=== PATIENT | female | born 1980 | race Caucasian/White ===

== ENCOUNTER → 2024-06-13 17:53 | Outpatient (REF) | payer BC, SELFPAY | LOC: WDC 17:53 | PROVIDERS: ATTENDING PHYSICIAN Student in an Organized Health Care Education/Training Program | DX: Z12.31 Encounter for screening mammogram for malignant neoplasm of breast (principal) | CPT/HCPCS: 77063; 77067 ==

== ENCOUNTER → 2025-06-14 17:35 | Outpatient (REF) | payer BC, SELFPAY | LOC: WDC 17:35 | PROVIDERS: ATTENDING PHYSICIAN Physician Assistant Medical | DX: Z12.31 Encounter for screening mammogram for malignant neoplasm of breast (principal) | CPT/HCPCS: 77063; 77067 ==